=== PATIENT | male | born 1935 | race Caucasian/White ===

== ENCOUNTER 2017-11-01 21:39 | Emergency (ER) | payer OTHER ==
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
--- NOTE | 2017-11-01 23:43 | RADIOLOGY REPORT ---
EXAMINATION: XR KNEE, LEFT CLINICAL INFORMATION: Fall. COMPARISON: None TECHNIQUE: Four views of the left knee. FINDINGS: There is no fracture. There is no dislocation. There is no joint effusion. There is degenerative joint disease. There is narrowing of the medial femoral tibial joint with small marginal bone spur of the femur. There is also small spur of the patella superiorly at the patellofemoral joint. IMPRESSION: 1. No acute abnormality. 2. Mild degenerative joint disease.
--- NOTE | 2017-11-01 23:47 | RADIOLOGY REPORT ---
EXAMINATION: XR KNEE, RIGHT CLINICAL INFORMATION: Trauma. COMPARISON: None TECHNIQUE: Four views of the right knee. FINDINGS: There is no fracture. There is no dislocation. There is no joint effusion. There is joint narrowing of the medial femoral tibial joint. No significant spur and no erosions of bone. IMPRESSION: No acute abnormality of the knee.
--- NOTE | 2017-11-02 00:05 | CT SCAN REPORT ---
EXAMINATION: CT HEAD WITHOUT CONTRAST CT FACIAL BONES WITHOUT CONTRAST CT CERVICAL SPINE WITHOUT CONTRAST CLINICAL INFORMATION: Fall COMPARISON: None. TECHNIQUE: Imaging was performed from the skull base to vertex without intravenous administration of contrast. In addition, helical noncontrast CT imaging was acquired through the cervical spine and facial bones and source images were reviewed along with axial reconstructions and sagittal and coronal MPRs. DLP: 1539.58 mGy-cm FINDINGS: HEAD: No intracranial mass, hemorrhage, or midline shift is visualized. There is atrophy with prominence of the ventricles and the sulci and hypodensity of the periventricular white matter due to chronic small vessel ischemic disease. No extra-axial collections are identified. FACIAL BONES: There is no evidence of an acute facial bone fracture. The paranasal sinuses are well aerated. No significant dental disease is visualized. The right orbital globe is completely collapsed. There is a curvilinear opacity at the anterior right orbit that is likely a prosthesis. The left orbital globe is normal. CERVICAL SPINE: There is no evidence of acute cervical spine fracture. Vertebrae have normal height and alignment. There is multilevel degenerative spondylosis of disc height narrowing and plate spurring and facet joint arthrosis. There is fusion of the C6-C7 vertebral bodies as well as fusion of the facet joint on the left C2-C3 level. No pre- or paravertebral soft tissue abnormality is identified. There is a coarse calcification in a small hypodense nodule in the right lobe of the thyroid. This can be further assessed with nonemergent thyroid ultrasound. IMPRESSION: 1. No acute intracranial process or discrete facial bone fracture. 2. No acute cervical spine fracture or traumatic subluxation.
--- NOTE | 2017-11-02 01:41 | RADIOLOGY REPORT ---
EXAMINATION: XR CHEST CLINICAL INFORMATION: Pneumonia, delirium COMPARISON: 04/19/2017 TECHNIQUE: 2 views of the chest were obtained. FINDINGS: Lung volumes are symmetric. No focal consolidation is seen. No evidence of pneumothorax, pleural effusion, or pulmonary edema. The cardiomediastinal contour is unremarkable. No acute osseous findings are seen. IMPRESSION: No acute cardiopulmonary findings.
[2017-11-02 01:43] LABS: ABSOLUTE BASOPHIL COUNT 0.2 /CUMM (0.0-0.2); ABSOLUTE EOSINOPHIL COUNT 0.1 /CUMM (0.0-0.7); ABSOLUTE GRANULOCYTE CT 8.3 /CUMM (1.4-6.5); ABSOLUTE LYMPH COUNT 1.6 /CUMM (1.2-3.4); ABSOLUTE MONOCYTE COUNT 0.9 /CUMM (0.10-0.60); BASOPHIL % 1.7 % (0.0-2.0); EOSINOPHIL % 0.7 % (0-5); GRANULOCYTE % 74.8 % (42.2-75.2); HEMATOCRIT 38.6 % (42-52); MEAN CORPUSCULAR HGB 31.5 PG (27.0-31.0); MEAN CORPUSCULAR VOLUME 92.7 FL (80.0-94.0); MEAN PLATELET VOLUME 6.7 FL (7.4-10.4); PLATELET COUNT 338 /CUMM (130-400); RBC DISTRIBUTION WIDTH 13.7 % (11.5-14.5); RED BLOOD CELL CT 4.16 /CUMM (4.70-6.10); WHITE BLOOD CELL COUNT 11.1 /CUMM (4.8-10.8)
--- NOTE | 2017-11-02 14:34 | ED PSYCH CRISIS CONSULTATION ---
Crisis Consult Basic Assessment Date of Consult: 11/02/17 Responsible Person/Accompanied By: Vernon Morales, son (POA) Insurance Authorization: Insurance #1: [facility] Phone number: Policy number: [id number] Group number: [id number] Authorization number: ED Provider: Patient's ED Provider: Marin Noel DO Primary Care Physician: Patient's PCP: Leonides Esquivel MD PCP's Current Psychiatrist: none Chief Complaint: Altered Mental Status Patient's Quote: "I just want tgo go home" "I'm sorry if I caused trouble". Present Illness: Patient is an 82 year old male who is in E D after police had been called that he had wandered away from his home (where мария lives with son, Trace). Patient has no prior psychiatric history. He was interv iewed through [employer], with help from [employer] that service #[id number]. Patient apologized profusely for whatever disturbance he had caused in the E D last night, as he had to be held overnight, and there were no indonesian speaking personnel on duty, so he had a difficult time understanding. Patient is slightly hard of hearing as well. Patient was adamant that he had no thought at all about harming himself or anyone else. Patient was asked about the wandering behavior that resulted in his being brought to the E D in the first place, but patient was unable to really address that, as he kept returning to the incident of wandering from the E D last night. Memory does seem impaired, particularly short-term. Patient could name the place he was, and the day of the week. He was able to state that "the adan noel is president now". Patient has had 50+ year marraige to , who has Alzheimers, and is in [facility] in [place], [place]. Patient is able to visit her every day. While patient's son(with wehom he is living) is planning on moving, the family will sell the house and placement will be persued. When patient was asked if he would be happy if he were able to move to facility that was living, he readily agreed that would be verey good. Patient has no history of violence per son, and patient and had a very good marraige. Patient has ho history of depression or substance abuse. Patient has early stages of dementia, with some memory impairment. Placement would be appropriate as patient needs to be in a facillity that will not allow him to wander off. Patient does not require psychiatric treatment at this time. Patient's [address]: [address] [place] [address] Other Phone Number: Who Do You Live With? Son Family/Informants Interviewed: Vernon Morales, son (POA0 Allergies - Coded Allergies: No Known Allergies (11/02/17) Laboratory Results: Laboratory Tests 11/02/17 0130: Serum Alcohol < 10.0 11/02/17 0130: Anion Gap 8, Estimated GFR > 60, BUN/Creatinine Ratio 30.0 H, Glucose 106 H, Calcium 9.2, Total Bilirubin 0.8, AST 27, ALT 32, Alkaline Phosphatase 83, Total Protein 6.7, Albumin 3.9, Globulin 2.8, Albumin/Globulin Ratio 1.4, CBC w Diff NO MAN DIFF REQ, RBC 4.16 L, MCV 92.7, MCH 31.5 H, MCHC 34.0, RDW 13.7, MPV 6.7 L, Gran % 74.8, Lymphocytes % 14.5 L, Monocytes % 8.3, Eosinophils % 0.7, Basophils % 1.7, Absolute Granulocytes 8.3 H, Absolute Lymphocytes 1.6, Absolute Monocytes 0.9 H, Absolute Eosinophils 0.1, Absolute Basophils 0.2, Urine Opiates Screen < 100, Methadone Screen < 40, Barbiturate Screen < 60, Ur Phencyclidine Scrn < 6.00, Amphetamines Screen < 100, U Benzodiazepines Scrn < 85, Urine Cocaine Screen < 50, Urine Cannabis Screen < 5.00, Urine Color YEL, Urine Clarity CLEAR, Urine pH 7.0, Ur Specific [place] 1.015, Urine Protein NEG, Urine Ketones NEG, Urine Nitrite NEG, Urine Bilirubin NEG, Urine Urobilinogen 0.2, Ur Leukocyte Esterase NEG, Ur Microscopic EXAM NOT REQUIRED, Urine Hemoglobin NEG, Urine Glucose NEG Past History Past Medical History Neurological: dementia Past Surgical History Surgical History: non-contributory Psychosocial History Strengths/Capabilities: patient has good family support. patient has financial assets. patient has manager intermediate marraige Physical Limitations (Interventions): unstable Psychiatric Treatment History Psych Treatment Psychiatric Treatment No Diagnosis by History: none Substance Use/Abuse History Drug Use/Abuse Substances Used/Abused No Substance Abuse Treatment Substance Abuse Treatment Past Substance Abuse [place] No Comments: no substance abuse Current Mental Status Mental Status Orientation: Confused, Person, Place, Situation Affect: Anxious, WNL Speech: Soft Neuro-vegetative: Sleep Disturbance, WNL Appearance Appearance- Dress/Hygiene: in hospital garb, but neat Behaviors Thought Process: Tangential Thought Content: WNL Memory: Impaired Insight: Fair SI/HI Risk Assessment Past Suicidal Ideation/Attempts No Current Suicidal Ideation/Att No Past Homicidal Ideation/Att: No Current Homicidal Ideation/Attempts No Degree of Intent: None Gravely Disabled: Inability (wandering), Poor Judgment Risk Factors: age (under 24/over 65), poor impulse control, male Lethality Ratin (mild) PTSD Checklist PTSD Done? pt unable to participate ED Management Sitter: Yes Restraints: No DSM5/PS Stressors/Medical Prob Diagnosis' (DSM 5, Stressors, Medical): Neurocognitive Disorder unspecified Current GAF: 35 Comments: Has good support system, but needs environment where he can't wander away. Departure Disposition Psych Medical Clearance Date: 11/02/17 Medically Cleared at: 1200 Time Started: 1250 Time Ended: 1340 Psychiatrist Consulted: Shy Date Disposition Established: 11/02/17 Time Disposition Established: 1555 Plan for Disposition - Modality: SNF Facility: Patient to Arrange Follow-up Appt Date: 11/02/17 Rationale for Disposition: patient not in need of breanne-psych. Son will be persuing placement, hopefully in same facility as his . Referrals Leonides Esquivel MD (PCP/Family)
[2017-11-02 16:22] VITALS: BP 164/78
== END 2017-11-02 16:25 ==
LOC: ERH 21:39
PROVIDERS: Emergency Medicine
DX: F03.90 Unspecified dementia, unspecified severity, without behavioral disturbance, psychotic disturbance, mood disturbance, and anxiety (principal); R41.82 Altered mental status, unspecified
CPT/HCPCS: 71046; 73562; 73562-LT; 73562-RT; 80307; 81003; G0480